=== PATIENT | male | born 1955 | race Hispanic/Latino ===

== ENCOUNTER 2021-08-15 09:05 | Emergency (ER) | payer MEDICARE ==
[2021-08-16] MEDS ORDERED: MORPHINE 4 MG/1 ML INJ IM ONE (03:16)
[2021-08-16] MEDS ORDERED: ONDANSETRON 4 MG/2 ML INJ IM ONE (03:16)
--- NOTE | 2021-08-16 03:19 | Emergency Department Report ---
<BRENDON GARCIA - Last Filed: 08/16/21 03:17> ED General Adult HPI - General Chief complaint: Extremity Problem,Nontraumatic Stated complaint: LEFT LEG SWELLING X 5 DAYS Time Seen by Provider: 08/16/21 02:47 Source: patient, EMS Mode of arrival: Stretcher Limitations: Physical Limitation - History of Present Illness Initial comments: Patient is 66-year-old male with history of hypertension, diabetes, congestive heart failure, pacemaker, atrial fibrillation. Patient brought to the emergency room via EMS complaining of bilateral lower extremity swelling and left knee pain. Patient denies any chest pain or shortness of breath. He denies any fever or chills. Severity scale (0 -10): 6 - Related Data Home Medications Medication Instructions Recorded Confirmed Last Taken Gabapentin [Neurontin] 600 mg PO BID 10/11/19 10/11/19 Unknown Glimepiride [Amaryl] 4 mg PO BID 10/11/19 10/11/19 Unknown Metformin HCl [Glucophage] 1,000 mg PO BID 10/11/19 10/11/19 Unknown Metoprolol [Lopressor TAB] 100 mg PO TID 10/11/19 10/11/19 Unknown Rosuvastatin Calcium 10 mg PO Q48HR 10/11/19 10/11/19 Unknown Warfarin [Coumadin] 7.5 mg PO QDAY 10/11/19 10/11/19 Unknown cloNIDine [Catapres] 0.1 mg PO Q8H PRN 10/11/19 10/11/19 Unknown lisinopriL [Zestril TAB] 40 mg PO QDAY 10/11/19 10/11/19 Unknown Previous Rx's Medication Instructions Recorded Last Taken Type Antacid [Alum-Mag Hydrox-Simeth 15 ml PO Q4H PRN #1 bottle 10/16/19 Unknown Rx [id number]] Pantoprazole [Protonix TAB] 40 mg PO QDAY #30 tablet 10/16/19 Unknown Rx levoFLOXacin [Levaquin] 750 mg PO Q48H #5 tablet 10/16/19 Unknown Rx Allergies Allergy/AdvReac Type Severity Reaction Status Date / Time hydrocodone Allergy Mild Unknown Verified 10/11/19 05:08 ED Review of Systems Comment: All other systems reviewed and negative Constitutional: denies: chills, fever Respiratory: denies: cough, orthopnea, shortness of breath, SOB with exertion, SOB at rest, wheezing Cardiovascular: denies: chest pain, palpitations Gastrointestinal: denies: abdominal pain, nausea, vomiting, diarrhea, constipation, hematemesis Musculoskeletal: denies: back pain Neurological: denies: headache ED Past Medical Hx - Past Medical History Hx Hypertension: Yes Hx Congestive Heart Failure: Yes Hx Diabetes: Yes Additional medical history: A-fib, high Cholesterol, Cirrhosis, TIA - Social History Smoking Status: Never Smoker - Medications Home Medications: Home Medications Medication Instructions Recorded Confirmed Last Taken Type Gabapentin [Neurontin] 600 mg PO BID 10/11/19 10/11/19 Unknown History Glimepiride [Amaryl] 4 mg PO BID 10/11/19 10/11/19 Unknown History Metformin HCl [Glucophage] 1,000 mg PO BID 10/11/19 10/11/19 Unknown History Metoprolol [Lopressor TAB] 100 mg PO TID 10/11/19 10/11/19 Unknown History Rosuvastatin Calcium 10 mg PO Q48HR 10/11/19 10/11/19 Unknown History Warfarin [Coumadin] 7.5 mg PO QDAY 10/11/19 10/11/19 Unknown History cloNIDine [Catapres] 0.1 mg PO Q8H PRN 10/11/19 10/11/19 Unknown History lisinopriL [Zestril TAB] 40 mg PO QDAY 10/11/19 10/11/19 Unknown History Antacid [Alum-Mag Hydrox-Simeth 15 ml PO Q4H PRN #1 bottle 10/16/19 Unknown Rx [id number]] Pantoprazole [Protonix TAB] 40 mg PO QDAY #30 tablet 10/16/19 Unknown Rx levoFLOXacin [Levaquin] 750 mg PO Q48H #5 tablet 10/16/19 Unknown Rx ED Physical Exam - General Limitations: Physical Limitation General appearance: alert, in no apparent distress - Head Head exam: Present: atraumatic, normocephalic, normal inspection - Eye Eye exam: Present: normal appearance - ENT ENT exam: Present: normal exam, normal orophraynx, mucous membranes moist - Neck Neck exam: Present: normal inspection, full ROM. Absent: tenderness, meningismus - Respiratory Respiratory exam: Present: normal lung sounds bilaterally - Cardiovascular Cardiovascular Exam: Present: regular rate, normal rhythm, normal heart sounds - GI/Abdominal GI/Abdominal exam: Present: soft, normal bowel sounds. Absent: distended, tenderness, guarding, rebound, rigid, organomegaly, mass, bruit, pulsatile mass, hernia - Extremities Exam Extremities exam: Present: full ROM, pedal edema. Absent: tenderness, calf tenderness - Back Exam Back exam: Present: normal inspection, full ROM. Absent: CVA tenderness (R), CVA tenderness (L) - Neurological Exam Neurological exam: Present: alert, oriented X3, CN II-XII intact - Psychiatric Psychiatric exam: Present: normal mood - Skin Skin exam: Present: warm ED Disposition Clinical Impression: Lower extremity edema, Arthritis Disposition: HOME / SELF CARE / HOMELESS Condition: Stable Instructions: Osteoarthritis, Edema, Xytt-in-[id number] <FRANKI MCKEON - Last Filed: 08/16/21 12:46> ED Review of Systems ROS: Stated complaint: LEFT LEG SWELLING X 5 DAYS Other details as noted in HPI ED Course Vital Signs 08/15/21 08/16/21 08/16/21 09:13 02:29 02:31 Temperature 98.2 F Pulse Rate 60 123 H Respiratory 16 26 H Rate Blood Pressure 146/87 Blood Pressure 150/72 [Left] O2 Sat by Pulse 98 99 100 Oximetry 08/16/21 08/16/21 08/16/21 02:45 03:01 03:15 Temperature Pulse Rate 100 H 105 H 98 H Respiratory 14 13 11 L Rate Blood Pressure 123/56 114/51 125/55 Blood Pressure [Left] O2 Sat by Pulse 100 98 100 Oximetry 08/16/21 08/16/21 08/16/21 03:31 03:45 04:00 Temperature Pulse Rate 109 H 95 H 98 H Respiratory 17 10 L 10 L Rate Blood Pressure 117/50 151/81 151/81 Blood Pressure [Left] O2 Sat by Pulse 100 100 100 Oximetry 08/16/21 08/16/21 08/16/21 04:15 04:31 04:45 Temperature Pulse Rate 98 H 103 H 110 H Respiratory 14 9 L 10 L Rate Blood Pressure 118/73 151/81 151/81 Blood Pressure [Left] O2 Sat by Pulse 99 100 99 Oximetry 08/16/21 08/16/21 08/16/21 05:01 05:15 05:31 Temperature Pulse Rate 100 H 97 H 99 H Respiratory 20 19 10 L Rate Blood Pressure 116/65 116/65 121/55 Blood Pressure [Left] O2 Sat by Pulse 92 89 99 Oximetry 08/16/21 08/16/21 08/16/21 05:45 06:01 06:15 Temperature Pulse Rate 103 H 99 H 100 H Respiratory 19 18 18 Rate Blood Pressure 121/55 128/65 128/65 Blood Pressure [Left] O2 Sat by Pulse 94 96 96 Oximetry 08/16/21 08/16/21 08/16/21 06:31 06:45 07:00 Temperature Pulse Rate 99 H 102 H 116 H Respiratory 18 19 17 Rate Blood Pressure 131/61 131/61 131/61 Blood Pressure [Left] O2 Sat by Pulse 88 99 98 Oximetry 08/16/21 07:16 Temperature Pulse Rate 96 H Respiratory 13 Rate Blood Pressure Blood Pressure [Left] O2 Sat by Pulse 98 Oximetry ED Medical Decision Making - Lab Data Result diagrams: 08/16/21 03:23 08/16/21 03:23 Critical care attestation.: If time is entered above; I have spent that time in minutes in the direct care of this critically ill patient, excluding procedure time. ED Disposition Is pt being admited?: No Does the pt Need Aspirin: No
[2021-08-16 03:48] LABS: Basophils % (Auto) 0.5 % (0.0-1.8); Eosinophils # (Auto) 0.1 K/mm3 (0.0-0.4); Eosinophils % (Auto) 1.2 % (0.0-4.3); Hematocrit 38.5 % (35.5-45.6); Hemoglobin 12.9 gm/dl (11.8-15.2); Lymphocytes # (Auto) 0.6 K/mm3 (1.2-5.4); Lymphocytes % (Auto) 8.8 % (13.4-35.0); Mean Corpuscular HGB Conc 34 % (32-34); Mean Corpuscular Volume 90 fl (84-94); Monocytes # (Auto) 0.4 K/mm3 (0.0-0.8); Monocytes % (Auto) 6.1 % (0.0-7.3); Red Blood Count 4.28 M/mm3 (3.65-5.03); Red Cell Distribution Width 16.4 % (13.2-15.2)
[2021-08-16 03:50] LABS: Platelet Count 87 K/mm3 (140-440)
[2021-08-16 04:01] LABS: INR 1.53 (0.87-1.13); Partial Thromboplastin Time 40.1 Sec. (24.2-36.6)
[2021-08-16 04:04] LABS: Alanine Aminotransferase 12 units/L (7-56); Albumin 3.6 g/dL (3.9-5); BUN/Creatinine Ratio 20; Blood Urea Nitrogen 16 mg/dL (9-20); Calcium 9.1 mg/dL (8.4-10.2); Hemolysis Index 11
--- NOTE | 2021-08-16 04:58 | XRay Report ---
BILATERAL KNEE 4 VIEW(S) INDICATION / CLINICAL INFORMATION: knee pain COMPARISON: None available. FINDINGS: Left knee: Small suprapatellar joint effusion is suggested. [id number] tricompartmental osteoar throsis is present without evidence of acute fracture. Soft tissues appear intact. Right knee: Advanced tricompartmental osteoarthrosis is demonstrated more so than left knee with narr owing of the medial joint compartment space. No acute fracture. IMPRESSION: 1. Bilateral degenerative changes of the knees more pronounced involving the right knee. Signer Name: Lamont Brandon II, MD Signed: 08/16/2021 4:54 AM Workstation Name: [id number]
[2021-08-16] MEDS ORDERED: diphenhydrAMINE 25 MG CAP PO ONE (10:27)
--- NOTE | 2021-08-16 12:33 | Vascular Lab Report ---
DUPLEX DOPPLER LOWER EXTREMITY VEINS, BILATERAL INDICATION / CLINICAL INFORMATION: pain. TECHNIQUE: Duplex doppler imaging was performed through the veins of both lower extremities using venous kadi demetrius and other maneuvers. COMPARISON: None available. FINDINGS: RIGHT COMMON FEMORAL VEIN: Negative. RIGHT FEMORAL VEIN: Negative. RIGHT POPLITEAL VEIN: Negative. RIGHT CALF VEINS: Negative. LEFT COMMON FEMORAL VEIN: Negative. LEFT FEMORAL VEIN: Negative. LEFT POPLITEAL VEIN: Negative. LEFT CALF VEINS: Negative. ADDITIONAL FINDINGS: None. IMPRESSION: 1. No sonographic evidence for DVT in either lower extremity. Signer Name: Nathan Nolan MD Signed: 08/16/2021 12:28 PM Workstation Name: [id number]
[2021-08-16 16:53] VITALS: BP 132/70
== END 2021-08-16 17:06 | disposition home or self-care (01) ==
LOC: ED 09:05
DX: R60.0 Localized edema (principal); M19.90 Unspecified osteoarthritis, unspecified site; I11.0 Hypertensive heart disease with heart failure; I50.9 Heart failure, unspecified; E11.9 Type 2 diabetes mellitus without complications; Z91.09 Other allergy status, other than to drugs and biological substances; Z79.899 Other long term (current) drug therapy
CPT/HCPCS: 36415; 73560; 80053; 83880; 85025; 85610; 85730; 93970; 96372; 99284; J2270; J2405